=== PATIENT | female | born 1970 | race American Indian/Alaskan Native ===

== ENCOUNTER 2020-10-26 16:20 | Emergency (ER) | payer MEDICAID, OTHER, SELFPAY ==
--- NOTE | 2020-10-26 17:03 | Event Note ---
ED Screening Note Date of service: 10/26/20 Time: 17:02 ED Screening Note: Patient complains of headache x yesterday Was seen at [facility] today and given 0.1 of clonidine BP 206/122 here States headache is posterior Denies vision changes, dizziness, numbness/tingling/weakness, or difficulty with speech This initial assessment/diagnostic orders/clinical plan/treatment(s) is/are subject to change based on patients health status, clinical progression and re- assessment by fellow clinical providers in the ED. Further treatment and workup at subsequent clinical providers discretion. Patient/guardian urged not to elope from the ED as their condition may be serious if not clinically assessed and managed. Initial orders include: Labs
[2020-10-26 18:11] LABS: Alanine Aminotransferase 30 units/L (7-56); Albumin 4.5 g/dL (3.9-5); Blood Urea Nitrogen 10 mg/dL (7-17); Calcium 9.4 mg/dL (8.4-10.2); Hemolysis Index 6
[2020-10-26 18:15] LABS: Basophils % (Auto) 0.7 % (0.0-1.8); Hematocrit 36.9 % (30.3-42.9); Hemoglobin 12.7 gm/dl (10.1-14.3); Lymphocytes # (Auto) 1.6 K/mm3 (1.2-5.4); Lymphocytes % (Auto) 34.8 % (13.4-35.0); Mean Corpuscular HGB Conc 34 % (30-34); Mean Corpuscular Volume 94 fl (79-97); Monocytes # (Auto) 0.3 K/mm3 (0.0-0.8); Monocytes % (Auto) 6.4 % (0.0-7.3); Platelet Count 191 K/mm3 (140-440); Red Blood Count 3.95 M/mm3 (3.65-5.03); Red Cell Distribution Width 12.9 % (13.2-15.2)
[2020-10-26 18:24] LABS: BUN/Creatinine Ratio 14
[2020-10-26] MEDS ORDERED: METOPROLOL TARTRATE 50 MG TAB PO ONE (18:34)
--- NOTE | 2020-10-26 19:19 | Emergency Department Report ---
ED General Adult HPI - General Chief complaint: High BP Stated complaint: SEVERE HEADACHE Time Seen by Provider: 10/26/20 17:02 Source: patient Mode of arrival: Ambulatory Limitations: No Limitations - History of Present Illness Initial comments: Patient is a 50-year-old female who is here complaining of mild headache for the last 2 days. She states she believes her blood pressure is elevated. She has been out of her blood pressure medications for 1 month. She has a bottle of the exact same medication but is 6 and she did not want to take it. She was sent to [facility] today from her job and blood pressure was elevated. She was given 0.1 mg of clonidine with no improvement she was sent to the emergency department. She has no shortness of breath chest pain or focal neurological deficits. - Related Data Previous Rx's Medication Instructions Recorded Last Taken Type Valsartan/Hydrochlorothiazide 1 each PO DAILY #30 tablet 10/26/20 Unknown Rx [Valsartan-Hctz 160-25 mg Tab] Allergies Allergy/AdvReac Type Severity Reaction Status Date / Time No Known Allergies Allergy Verified 10/26/20 16:57 ED Review of Systems ROS: Stated complaint: SEVERE HEADACHE Other details as noted in HPI Comment: All other systems reviewed and negative ED Past Medical Hx - Past Medical History Hx Hypertension: Yes - Surgical History Past Surgical History?: No - Medications Home Medications: Home Medications Medication Instructions Recorded Confirmed Last Taken Type Valsartan/Hydrochlorothiazide 1 each PO DAILY #30 tablet 10/26/20 Unknown Rx [Valsartan-Hctz 160-25 mg Tab] ED Physical Exam - General Limitations: No Limitations General appearance: alert, in no apparent distress - Head Head exam: Present: atraumatic, normocephalic - Eye Eye exam: Present: normal appearance - ENT ENT exam: Present: mucous membranes moist - Neck Neck exam: Present: normal inspection - Respiratory Respiratory exam: Present: normal lung sounds bilaterally. Absent: respiratory distress, wheezes, rales, rhonchi - Cardiovascular Cardiovascular Exam: Present: regular rate, normal rhythm, normal heart sounds. Absent: systolic murmur, diastolic murmur, rubs, gallop - GI/Abdominal GI/Abdominal exam: Present: soft, normal bowel sounds. Absent: distended, tenderness, guarding, rebound - Extremities Exam Extremities exam: Present: normal inspection - Back Exam Back exam: Present: normal inspection - Neurological Exam Neurological exam: Present: alert, oriented X3 - Psychiatric Psychiatric exam: Present: normal affect, normal mood - Skin Skin exam: Present: warm, dry, intact, normal color. Absent: rash ED Course Vital Signs 10/26/20 10/26/20 10/26/20 17:00 18:13 18:57 Temperature 98.5 F Pulse Rate 100 H 84 Respiratory 16 Rate Blood Pressure 206/122 183/101 Blood Pressure 195/122 [Left] O2 Sat by Pulse 95 98 Oximetry ED Medical Decision Making - Lab Data Result diagrams: 10/26/20 17:16 10/26/20 17:16 Lab Results 10/26/20 10/26/20 Range/Units 17:16 17:16 WBC 4.6 (4.5-11.0) K/mm3 RBC 3.95 (3.65-5.03) M/mm3 Hgb 12.7 (10.1-14.3) gm/dl Hct 36.9 (30.3-42.9) % MCV 94 (79-97) fl MCH 32 (28-32) pg MCHC 34 (30-34) % RDW 12.9 L (13.2-15.2) % Plt Count 191 (140-440) K/mm3 Lymph % (Auto) 34.8 (13.4-35.0) % [place] % (Auto) 6.4 (0.0-7.3) % Eos % (Auto) 1.0 (0.0-4.3) % Baso % (Auto) 0.7 (0.0-1.8) % Lymph # (Auto) 1.6 (1.2-5.4) K/mm3 [place] # (Auto) 0.3 (0.0-0.8) K/mm3 Eos # (Auto) 0.0 (0.0-0.4) K/mm3 Baso # (Auto) 0.0 (0.0-0.1) K/mm3 Seg Neutrophils % 57.1 (40.0-70.0) % Seg Neutrophils # 2.6 (1.8-7.7) K/mm3 Sodium 142 (137-145) mmol/L Potassium 3.6 (3.6-5.0) mmol/L Chloride 103.7 (98-107) mmol/L Carbon Dioxide 29 (22-30) mmol/L Anion Gap 13 mmol/L BUN 10 (7-17) mg/dL Creatinine 0.7 (0.6-1.2) mg/dL Estimated GFR > 60 ml/min BUN/Creatinine Ratio 14 % Glucose 114 H (65-100) mg/dL Calcium 9.4 (8.4-10.2) mg/dL Total Bilirubin 0.30 (0.1-1.2) mg/dL AST 25 (5-40) units/L ALT 30 (7-56) units/L Alkaline Phosphatase 70 (35-129) units/L Total Protein 7.7 (6.3-8.2) g/dL Albumin 4.5 (3.9-5) g/dL Albumin/Globulin Ratio 1.4 % - Medical Decision Making Patient is not showing any signs of endorgan damage at this time. She was given a dose of metoprolol and will be restarted back on her blood prescription. Patient was taken valsartan hydrochlorothiazide 160/12.5. Patient states that she was hoping to have some better control of her blood pressure and will up the dose to the 160/25 mg dose. Critical care attestation.: If time is entered above; I have spent that time in minutes in the direct care of this critically ill patient, excluding procedure time. ED Disposition Clinical Impression: Hypertensive urgency, Medical non-compliance Disposition: DC-01 TO HOME OR SELFCARE Is pt being admited?: No Does the pt Need Aspirin: No Condition: Stable Instructions: Preventing Hypertension, Hypertension, Adult, [id number] Prescriptions: Valsartan/Hydrochlorothiazide [Valsartan-Hctz 160-25 mg Tab] 1 each PO DAILY #30 tablet Time of Disposition: 19:19
[2020-10-26 20:13] VITALS: BP 187/100
== END 2020-10-26 20:02 | disposition home or self-care (01) ==
LOC: ED 16:20
DX: I16.0 Hypertensive urgency (principal); Z91.19 Patient's noncompliance with other medical treatment and regimen; Z79.899 Other long term (current) drug therapy
CPT/HCPCS: 36415; 80053; 85025

== ENCOUNTER 2020-11-29 11:40 | Emergency (ER) | payer OTHER ==
--- NOTE | 2020-11-29 12:02 | Event Note ---
ED Screening Note ED Screening Note: had her BP medication increased on 10/26/2020 in the ED states she has an appointment tomorrow with a PCP states she took her BP this morning at 9 AM states she has headaches intermittently for a month no vision changes states began having chest heaviness yesterday no SOB no n/v no diaphoresis no numbness no weakness This initial assessment/diagnostic orders/clinical plan/treatment(s) is/are subject to change based on patients health status, clinical progression and re- assessment by fellow clinical providers in the ED. Further treatment and workup at subsequent clinical providers discretion. Patient/guardian urged not to elope from the ED as their condition may be serious if not clinically assessed and managed. Initial orders include: CP protocol, CT head
--- NOTE | 2020-11-29 12:42 | XRay Report ---
CHEST 2 VIEWS INDICATION / CLINICAL INFORMATION: Chest Pain. COMPARISON: None available. FINDINGS: SUPPORT DEVICES: None. HEART / MEDIASTINUM: No significant abnormality. LUNGS / PLEURA: No significant pulmonary or pleural abnormality. No pneumothorax. ADDITIONAL FINDINGS: No significant additional findings. IMPRESSION: No acute cardiopulmonary abnormality. Signer Name: Jaime Castorena MD Signed: 11/29/2020 12:38 PM Workstation Name: [id number]
[2020-11-29 13:34] LABS: Basophils % (Auto) 0.9 % (0.0-1.8); Eosinophils % (Auto) 0.5 % (0.0-4.3); Hemoglobin 13.3 gm/dl (10.1-14.3); Lymphocytes # (Auto) 1.2 K/mm3 (1.2-5.4); Lymphocytes % (Auto) 32.7 % (13.4-35.0); Mean Corpuscular HGB Conc 34 % (30-34); Mean Corpuscular Volume 94 fl (79-97); Monocytes # (Auto) 0.2 K/mm3 (0.0-0.8); Monocytes % (Auto) 5.5 % (0.0-7.3); Platelet Count 214 K/mm3 (140-440); Red Blood Count 4.14 M/mm3 (3.65-5.03); Red Cell Distribution Width 12.4 % (13.2-15.2)
[2020-11-29 13:57] LABS: Alanine Aminotransferase 28 units/L (7-56); Albumin 4.7 g/dL (3.9-5); Blood Urea Nitrogen 12 mg/dL (7-17); Calcium 9.6 mg/dL (8.4-10.2); Hemolysis Index 4
[2020-11-29 14:10] LABS: BUN/Creatinine Ratio 17
--- NOTE | 2020-11-29 14:20 | Cat Scan Report ---
CT head/brain wo con INDICATION / CLINICAL INFORMATION: 50 years Female; SHOEMAKER, HTN urgency. TECHNIQUE: Routine CT head without contrast. All CT scans at this location are performed using CT dos e reduction for ALARA by means of automated exposure control. COMPARISON: None. FINDINGS: BRAIN / INTRACRANIAL CONTENTS: No acute hemorrhage, mass effect, midline shift, hydrocephalus, or acu te, large territorial infarct. No signs of significant atrophy or chronic infarct. No significant whi te matter abnormality seen. CRANIOCERVICAL JUNCTION: No significant abnormality. ORBITS: No significant abnormality of visualized orbits. SINUSES / MASTOIDS: Visualized paranasal sinuses and mastoid air cells are essentially clear. ADDITIONAL FINDINGS: None. IMPRESSION: 1. No focal mass, hemorrhage, hydrocephalus, or acute, large territorial infarct. Signer Name: Edwin Lynch MD, III Signed: 11/29/2020 2:16 PM Workstation Name: [id number]
--- NOTE | 2020-11-29 16:11 | Emergency Department Report ---
ED General Adult HPI - General Chief complaint: Chest Pain Stated complaint: CHEST HEAVINESS; HEADACHE; HIGH BLOOD PRESSURE Time Seen by Provider: 11/29/20 12:02 Source: patient Mode of arrival: Ambulatory Limitations: No Limitations - History of Present Illness Initial comments: Patient is 50 years old female with history of hypertension. Patient is cu rrently taking losartan/hydrochlorthiazide 160/25 milligrams. Patient presented to the ER with multiple complaints. Patient stated that she is having headache since yesterday comes and goes. She also reported that she is having chest pain last night and this morning however it resolved now. Patient denied any weakness, numbness or tingling sensation. No neck pain, bowel or bladder incontinence. Patient also denied any abdominal pain, nausea or vomiting. Patient found to have a blood pressure of 214/129. Patient stated that she is compliant with her medication and actually she showed me blood pressure log with fluctuating blood pressure. -: Last night Location: head, chest Severity scale (0 -10): 5 Consistency: intermittent - Related Data Previous Rx's Medication Instructions Recorded Last Taken Type Valsartan/Hydrochlorothiazide 1 each PO DAILY #30 tablet 10/26/20 Unknown Rx [Valsartan-Hctz 160-25 mg Tab] hydrALAZINE [Apresoline TAB] 10 mg PO Q8H #30 tablet 11/29/20 Unknown Rx Allergies Allergy/AdvReac Type Severity Reaction Status Date / Time No Known Allergies Allergy Verified 11/29/20 11:48 ED Review of Systems ROS: Stated complaint: CHEST HEAVINESS; HEADACHE; HIGH BLOOD PRESSURE Other details as noted in HPI Comment: All other systems reviewed and negative Constitutional: denies: chills, fever Respiratory: denies: cough, orthopnea, shortness of breath, SOB with exertion, SOB at rest, wheezing Cardiovascular: chest pain. denies: palpitations, dyspnea on exertion, orthopnea Gastrointestinal: denies: abdominal pain, nausea, vomiting Musculoskeletal: denies: back pain Neurological: headache. denies: weakness, numbness, paresthesias, confusion, abnormal gait ED Past Medical Hx - Past Medical History Previous Medical History?: No Hx Hypertension: Yes - Surgical History Past Surgical History?: No - Medications Home Medications: Home Medications Medication Instructions Recorded Confirmed Last Taken Type Valsartan/Hydrochlorothiazide 1 each PO DAILY #30 tablet 10/26/20 Unknown Rx [Valsartan-Hctz 160-25 mg Tab] hydrALAZINE [Apresoline TAB] 10 mg PO Q8H #30 tablet 11/29/20 Unknown Rx ED Physical Exam - General Limitations: No Limitations General appearance: alert, in no apparent distress - Head Head exam: Present: atraumatic, normocephalic, normal inspection - Eye Eye exam: Present: normal appearance - ENT ENT exam: Present: normal exam, normal orophraynx, mucous membranes moist - Neck Neck exam: Present: normal inspection, full ROM. Absent: tenderness, meningismus - Respiratory Respiratory exam: Present: normal lung sounds bilaterally - Cardiovascular Cardiovascular Exam: Present: regular rate, normal rhythm, normal heart sounds - GI/Abdominal GI/Abdominal exam: Present: soft, normal bowel sounds. Absent: distended, tenderness, guarding, rebound, rigid, organomegaly, mass, bruit, pulsatile mass, hernia - Extremities Exam Extremities exam: Present: normal inspection, full ROM, normal capillary refill. Absent: pedal edema, calf tenderness - Back Exam Back exam: Present: normal inspection, full ROM. Absent: CVA tenderness (R), CVA tenderness (L) - Neurological Exam Neurological exam: Present: alert, oriented X3, CN II-XII intact, normal gait, reflexes normal. Absent: motor sensory deficit - Psychiatric Psychiatric exam: Present: normal mood - Skin Skin exam: Present: warm, intact, normal color ED Course Vital Signs 11/29/20 11/29/20 11/29/20 11:52 16:08 19:47 Temperature 97.9 F Pulse Rate 91 H 79 56 L Respiratory 20 18 Rate Blood Pressure 214/129 161/96 Blood Pressure 117/61 [Right] O2 Sat by Pulse 99 97 99 Oximetry ED Medical Decision Making - Lab Data Result diagrams: 11/29/20 12:44 11/29/20 12:44 - EKG Data -: EKG Interpreted by Co EKG shows normal: sinus rhythm Rate: normal - EKG Data Interpretation: no acute changes - Radiology Data Radiology results: report reviewed - Medical Decision Making Patient is 50 years old female with history of hypertension. Patient is currently taking losartan/hydrochlorthiazide 160/25 milligrams. Patient presented to the ER with multiple complaints. Patient stated that she is having headache since yesterday comes and goes. She also reported that she is having chest pain last night and this morning however it resolved now. Patient denied any weakness, numbness or tingling sensation. No neck pain, bowel or bladder incontinence. Patient also denied any abdominal pain, nausea or vomiting. Patient found to have a blood pressure of 214/129. Patient stated that she is compliant with her medication and actually she showed me blood pressure log with fluctuating blood pressure. Labs reviewed and is unremarkable. Patient received clonidine 0.1 mg her blood pressure improved significantly. I added hydralazine 10 mg to her current regimen and advised to follow-up with her primary doctor in the next 2 to 3 days and to return to the ER if she develop any new symptoms. Critical care attestation.: If time is entered above; I have spent that time in minutes in the direct care of this critically ill patient, excluding procedure time. ED Disposition Clinical Impression: Chest pain, Malignant hypertension Disposition: DC-01 TO HOME OR SELFCARE Is pt being admited?: No Condition: Stable Instructions: Nonspecific Chest Pain, Adult, Hypertension, Adult, [id number], Chest Pain (ED), Hypertension (ED) Prescriptions: hydrALAZINE [Apresoline TAB] 10 mg PO Q8H #30 tablet Referrals: PRIMARY CARE, [Primary Care Provider] - 3-5 Days
[2020-11-29] MEDS ORDERED: cloNIDine 0.1 MG TAB PO ONE (16:12)
[2020-11-29 18:29] LABS: Bilirubin,Urine NEG (Negative); Blood,Urine NEG (Negative); Color,Urine Straw (Yellow); Mucus,Urine FEW /HPF; Protein,Urine <15 mg/dL mg/dL (Negative); Urobilinogen,Urine < 2.0 mg/dL (<2.0)
[2020-11-29 19:48] VITALS: BP 117/61
== END 2020-11-29 20:05 | disposition home or self-care (01) ==
LOC: ED 11:40
DX: R07.89 Other chest pain (principal); I10 Essential (primary) hypertension; R51.9 Headache, unspecified; Z79.899 Other long term (current) drug therapy
CPT/HCPCS: 36415; 70450; 71046; 80053; 81001; 84484; 84703; 85025; 93005

== ENCOUNTER 2020-12-02 20:53 | Emergency (ER) | payer OTHER ==
--- NOTE | 2020-12-02 22:00 | XRay Report ---
CHEST 2 VIEWS INDICATION: Chest Pain. COMPARISON: 11/29/2020. FINDINGS: Support devices: None. Heart: Within normal limits. Lungs/Pleura: No acute air space or interstitial disease. No significant pleural effusion. IMPRESSION: No acute findings. Signer Name: Sd Hodge MD Signed: 12/02/2020 9:56 PM Workstation Name: [id number]
[2020-12-02 22:18] LABS: Basophils % (Auto) 0.6 % (0.0-1.8); Eosinophils # (Auto) 0.1 K/mm3 (0.0-0.4); Eosinophils % (Auto) 1.1 % (0.0-4.3); Hematocrit 37.7 % (30.3-42.9); Lymphocytes # (Auto) 2.1 K/mm3 (1.2-5.4); Lymphocytes % (Auto) 37.4 % (13.4-35.0); Mean Corpuscular HGB Conc 35 % (30-34); Mean Corpuscular Volume 93 fl (79-97); Monocytes # (Auto) 0.5 K/mm3 (0.0-0.8); Monocytes % (Auto) 8.9 % (0.0-7.3); Platelet Count 213 K/mm3 (140-440); Red Blood Count 4.04 M/mm3 (3.65-5.03); Red Cell Distribution Width 12.7 % (13.2-15.2)
[2020-12-02 22:37] LABS: Alanine Aminotransferase 22 units/L (7-56); Albumin 4.6 g/dL (3.9-5); Blood Urea Nitrogen 12 mg/dL (7-17); Calcium 9.6 mg/dL (8.4-10.2); Hemolysis Index 9
[2020-12-02 22:38] LABS: BUN/Creatinine Ratio 17
--- NOTE | 2020-12-02 23:38 | Emergency Department Report ---
ED Chest Pain HPI - General Chief Complaint: Chest Pain Stated Complaint: CHEST PAIN,HEADACHE Time Seen by Provider: 12/02/20 23:31 Source: patient Mode of arrival: Ambulatory Limitations: No Limitations - History of Present Illness Initial Comments: 50-year-old female, recently diagnosed with hypertension last month, presents to ED with chest pain, headache, elevated blood pressure. Patient was seen 3 days ago for same. Had negative work-up including troponin, EKG, CT head. During that visit she was given a prescription for hydralazine, which she has been taking. Patient states her symptoms began 1 month ago, early October, with a headache. She was seen here in our ED and prescribed valsartan, HCTZ. Patient states prior to last month, she did not have a diagnosis of hypertension, however, she also did not have a PCP, and was not seeing any physician regularly. Patient states this evening, she was just sitting around and she began to have some heaviness in her chest along with a headache. She reports the chest pain lasts no more than 5 minutes. Patient denies any nausea, vomiting, shortness of breath, diaphoresis, leg pain or swelling. Patient states when she began having the headache and chest pain, she took her blood pressure and it was elevated. Patient has a home BP device and has been checks her blood pressure many times throughout the day. Patient's first blood pressure when she woke up this morning was 129/80. She states whenever she feels the slightest headache or chest discomfort, she will take her blood pr essure. Patient states that she will then drink water to see if it will improve her BP and then check her blood pressure again 30 minutes later. Patient states "sometimes I check my blood pressure so many times I cannot even count ". Patient's blood pressure gets progressively higher as she checks it throughout the day. She denies anxiety. 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 She reports her chest pain has currently resolved. Complaint: chest pain -: This evening Onset: during rest Pain Location: substernal Pain Radiation: none Severity: moderate Quality: heaviness Consistency: intermittent Improves With: nothing Worsens With: nothing re: denies: nausea, vomting, diaphoresis, dyspnea Other Symptoms: denies: cough, fever, leg swelling - Related Data Previous Rx's Medication Instructions Recorded Last Taken Type Valsartan/Hydrochlorothiazide 1 each PO DAILY #30 tablet 10/26/20 Unknown Rx [Valsartan-Hctz 160-25 mg Tab] hydrALAZINE [Apresoline TAB] 10 mg PO Q8H #30 tablet 11/29/20 Unknown Rx Allergies Allergy/AdvReac Type Severity Reaction Status Date / Time No Known Allergies Allergy Verified 11/29/20 11:48 Heart Score - HEART Score History: Slightly suspicious EKG: Normal Age: 45-65 Risk factors: 1-2 risk factors Troponin: < normal limit HEART Score: 2 ED Review of Systems ROS: Stated complaint: CHEST PAIN,HEADACHE Other details as noted in HPI Comment: All other systems reviewed and negative Constitutional: denies: chills, fever Respiratory: denies: cough, shortness of breath Cardiovascular: chest pain Gastrointestinal: denies: nausea, vomiting ED Past Medical Hx - Past Medical History Previous Medical History?: Yes Hx Hypertension: Yes - Surgical History Past Surgical History?: No - Social History Smoking Status: Never Smoker Substance Use Type: None - Medications Home Medications: Home Medications Medication Instructions Recorded Confirmed Last Taken Type Valsartan/Hydrochlorothiazide 1 each PO DAILY #30 tablet 10/26/20 Unknown Rx [Valsartan-Hctz 160-25 mg Tab] hydrALAZINE [Apresoline TAB] 10 mg PO Q8H #30 tablet 11/29/20 Unknown Rx ED Physical Exam - General Limitations: No Limitations General appearance: alert, in no apparent distress - Head Head exam: Present: atraumatic, normocephalic - Eye Eye exam: Present: normal appearance - ENT ENT exam: Present: mucous membranes moist - Neck Neck exam: Present: normal inspection - Respiratory Respiratory exam: Present: normal lung sounds bilaterally. Absent: respiratory distress - Cardiovascular Cardiovascular Exam: Present: regular rate, normal rhythm - GI/Abdominal GI/Abdominal exam: Present: soft. Absent: distended, tenderness - Extremities Exam Extremities exam: Present: normal inspection - Neurological Exam Neurological exam: Present: alert, oriented X3 - Psychiatric Psychiatric exam: Present: normal affect, normal mood - Skin Skin exam: Present: warm, dry, intact, normal color ED Course Vital Signs 12/02/20 12/02/20 12/03/20 20:57 23:33 00:00 Temperature 98.5 F Pulse Rate 74 Respiratory 16 Rate Blood Pressure 180/110 Blood Pressure 229/113 184/94 [Left] O2 Sat by Pulse 100 Oximetry 12/03/20 12/03/20 12/03/20 00:23 00:25 00:30 Temperature Pulse Rate 60 64 Respiratory 16 20 13 Rate Blood Pressure 153/88 Blood Pressure 142/80 [Left] O2 Sat by Pulse 100 98 99 Oximetry ED Medical Decision Making - Lab Data Result diagrams: 12/02/20 21:59 12/02/20 21:59 - EKG Data -: EKG Interpreted by Me EKG shows normal: sinus rhythm, axis, intervals, QRS complexes, ST-T waves Rate: normal - EKG Data Interpretation: no acute changes - Radiology Data Radiology results: report reviewed, image reviewed - Medical Decision Making 50-year-old female presents to ED with elevated blood pressure, chest pain, headache. Patient was seen for same 3 days ago and had a negative work-up at that time. Patient is compliant with her blood pressure medications, however I believe her symptoms may be related to anxiety. Patient had a blood pressure of 229/113 when I initially saw her. Patient declined any anxiety medication, however I instructed her to try and calm down and try to relax. Repeat blood pressure was much improved, 142/80, without any medication given here in the ED. EKG shows no ST changes, troponin is negative. Patient also had 2 negative troponins 3 days ago. I will not make any changes in patient's prescriptions. She has a follow-up appointment with her PCP in 4 days. Formation to [facility] so that she will have urgent cardiology follow-up. Patient is symptom-free at this time, will discharge home. Return precautions given. - Differential Diagnosis anxiety, HTN, ACS Critical care attestation.: If time is entered above; I have spent that time in minutes in the direct care of this critically ill patient, excluding procedure time. ED Disposition Clinical Impression: Chest pain, Hypertension Disposition: - TO HOME OR SELFCARE Is pt being admited?: No Condition: Stable Instructions: Nonspecific Chest Pain, Adult, [id number], Managing Anxiety, Adult, Chest Pain (ED), Hypertension (ED), Hypertension, Adult, [id number] Referrals: MASTER LARA MD [Primary Care Provider] - 3-5 Days Time of Disposition: 00:43
[2020-12-03 00:36] VITALS: BP 153/88
== END 2020-12-03 01:14 | disposition home or self-care (01) ==
LOC: ED 20:53
DX: R07.89 Other chest pain (principal); I10 Essential (primary) hypertension; R51.9 Headache, unspecified; Z79.899 Other long term (current) drug therapy
CPT/HCPCS: 36415; 71046; 80053; 84484; 85025; 93005